=== PATIENT | male | born 1950 | race Hispanic/Latino ===

== ENCOUNTER 2018-04-09 08:01 | Day surgery (SDC) | payer MEDICARE ==
--- NOTE | 2018-04-06 11:41 | RAD REPORT ---
EXAM DESCRIPTION: RAD - Chest Pa And Lat (2 Views) - 04/06/2018 11:12 am CLINICAL HISTORY: Preop chest, fibrosis. COMPARISON: September 2012 TECHNIQUE: PA and lateral views of the chest were obtained. FINDINGS: The lungs are clear of a focal mass, consolidation or failure finding. Interstitial markin gs are prominent in each lung base believed to be fibrosis. The pattern is not substantially differen t from the prior study. Trachea is midline. Heart size is normal and central vasculature is within normal limits. No pleural effusion or pneumothorax seen. No acute bone finding is seen. There is de generative and scoliotic changes in the midthoracic spine. No aortic abnormality. IMPRESSION: Fibrotic lung pattern is seen similar to comparison. No acute cardiopulmonary finding.
[2018-04-06 15:05] LABS: Absolute Lymphocytes (CBC) 1.4 K/uL (0.7-4.9); Absolute Monocytes 0.5 K/uL (0.1-1.3); Absolute Neutrophil 3.5 K/uL (1.8-8.0); Eosinophils % 3.5 % (0-4.4); Hematocrit 41.9 % (39.6-49.0); Lymphocytes % 24.8 % (15.3-44.8); MCH 30.4 pg (27.0-35.0); MPV 8.3 fL (7.6-11.3); Monocytes % 9.2 % (3.3-12.3); RBC Red Blood Cell Count 4.76 M/uL (4.33-5.43)
[2018-04-06 15:24] LABS: Potassium 4.8 mmol/L (3.5-5.1)
--- NOTE | 2018-04-07 12:13 | EKG ---
Test Date: 2018-04-06 Test Time: 09:36:40 Burrito Maker: EFRAÍN MEASUREMENT RESULTS: Intervals: Rate: 72 MA: 180 QRSD: 102 QT: 378 QTc: 413 [place]: P: 70 MA: 180 QRS: 44 T: 47 INTERPRETIVE STATEMENTS: Normal sinus rhythm Normal ECG Compared to ECG 10/18/2012 17:51:40 No significant changes Electronically Signed On 04-07-18 12:08:05 CDT by Jt Ernst
[2018-04-09] MEDS ORDERED: BUPIVACAINE 0.5% PF 10 ML VIAL ONE (09:00)
[2018-04-09] MEDS ORDERED: ROCURONIUM 50 MG/5 ML VIAL IV ONE (09:03)
[2018-04-09] MEDS ORDERED: PROPOFOL 200 MG/20 ML VIAL IV ONE (09:03)
[2018-04-09] MEDS ORDERED: MIDAZOLAM HCL 2 MG/2 ML INJ ONE (09:03)
[2018-04-09] MEDS ORDERED: FENTANYL CITR 100 MCG/2 ML ONE (09:03)
[2018-04-09] MEDS ORDERED: LIDOCAINE 2% MPF 5 ML VIAL ONE (09:03)
[2018-04-09] MEDS ORDERED: Ringers Lactate 1,000 ML IV ONE (09:10)
[2018-04-09] MEDS ORDERED: CEFAZOLIN/SWI 1gm 1 GM/10 ML SYR ONE (09:46)
--- NOTE | 2018-04-09 10:13 | P.BOP ---
Preoperative diagnosis: incarcerated tender ventral hernia Postoperative diagnosis: same Primary procedure: Open repair of incarcerated tender ventral hernia with mesh Facilities Supervisor: Clau Liu) Estimated blood loss: <10cc Specimen: hernia sac with omentum Anesthesia: General Complications: None Implants: ventralex medium Transferred to: Recovery Room Condition: Good
[2018-04-09] MEDS ORDERED: KETOROLAC 30 MG/ML INJ ONE (10:17)
[2018-04-09] MEDS ORDERED: GLYCOPYRROLATE 0.2 MG/ML SYR ONE (10:26)
[2018-04-09] MEDS ORDERED: NEOSTIGMINE 1 MG/ML -5 ML SYRINGE ONE (10:27)
[2018-04-09] MEDS ORDERED: MORPHINE 4 MG/ML SYR ONE (10:57)
[2018-04-09] MEDS ORDERED: HYDROCODONE/APAP 5/325 MG TAB ONE (11:52)
--- NOTE | 2018-04-09 22:18 | DS ---
Date of Discharge: 04/09/2018 Diagnosis: Incarcerated tender ventral hernia. Procedure: Open repair of incarcerated tender ventral hernia with mesh. Disposition: Home. Activity: Activity; as tolerated, no lifting. Follow up in my office in one week. Call for appointment [phone]. Keep the area dry for 48 hours, then may shower. Keep the Steri-Strip intact and replace cotton ball. Medications: Include Bactrim DS p.o. b.i.d. and Vicodin q.4 hours p.r.n. pain. JUAN/PHILLY Voice ID: [id number] Report ID: [id number]
--- NOTE | 2018-04-09 22:18 | OP ---
Date of Procedure: 04/09/2018 Surgeon: Abraham Bush MD Ball Thread Machine Tender: BARBI Perez. Preoperative Diagnosis: Incarcerated tender ventral hernia. Postoperative Diagnosis: Incarcerated tender ventral hernia. Procedure: Open repair of an incarcerated tender ventral hernia with mesh. Specimen: Hernia sac with omentum. Anesthesia: General plus local. Implant: A Ventralex medium. Indication For Procedure: This is the case of a male who comes to us with a large tender ventral her mey. Benefits, alternatives, and risks of repair with possible mesh were fully explained to the hiram ent which include but not limited to infection, bleeding, damage to adjacent structures, anesthesia c omplication, recurrence, OR, and even . He also understands this may not relieve his symptoms. He might need more than one surgical intervention. He understands the importance of losing weight a nd avoiding heavy lifting. He was explained pros and cons of mesh use, and he has allowed us to use the mesh. Description Of Procedure: The patient was brought to the operating room, placed in a supine position . Anesthesia was done without complication. Abdominal area was prepped and draped in a sterile fash ion. Marcaine 0.5% was injected for local anesthetic, followed by sharp incision of the skin in the supraumbilical ventral region. The incision was carried down to fascia. We noticed a hernia present . The hernia sac was an open. We noticed the incarcerated omentum cannot be reduced so we proceeded to suture ligate them between clamps, making sure the intestine is protected and we had to ligate th at with 0 chromic. The specimen was sent to the pathologist. The hernia sac was removed. The fasci al edges with were then cleaned. We noticed that in order to close this defect and to reinforce the area, we have to use mesh placement for reinforcement since the fascia is weak and had to debride the nonviable tissue. The intraperitoneal mesh was placed in and secured to the fascia at multiple poin ts individually with 2-0 Prolene. We made sure there was no bowel in between. We made sure the mesh was nice and flat. After that, we approximated the fascia edges with #1 Prolene in a figure-eight f ashion multiple times and the fascia edges were approximated. The area was irrigated. Then, subcuta neous tissue closed with 3-0 chromic and skin in a subcuticular fashion with 3-0 chromic and Steri-St rips on top. Sponge count and instrument counts were correct. The patient tolerated the procedure w ell. The patient was sent to recovery in stable condition. RUCHI Voice ID: [id number] Report ID: [id number]
== END 2018-04-09 12:20 | disposition home or self-care (01) ==
LOC: OR 08:01
PROVIDERS: ATTEND Surgery
PROC: 0WUF0JZ Supplement Abdominal Wall with Synthetic Substitute, Open Approach (ICD-10-PCS; principal; 2018-04-09 09:45)
DX: K43.6 Other and unspecified ventral hernia with obstruction, without gangrene (principal); I10 Essential (primary) hypertension; Z82.49 Family history of ischemic heart disease and other diseases of the circulatory system
CPT/HCPCS: 36415; 49561; 49568; 71046; 80048; 85025; 88302; 93005; J0690; J2250; J2710; J3010